=== PATIENT | male | born 1950 | race Caucasian/White ===

== ENCOUNTER → 2018-05-03 | Outpatient (CLI) | payer OTHER ==
[2014-12-18 15:32] VITALS: BP 112/60
[~2018-05-03] MED LIST: ASPI81TA50 PO; ASPI81TA59 PO; ATOR40TA PO; FLUO10CA13 PO; FLUO40CA9 PO; GABA600T2 PO; HYDR-2678 PO; HYDR-2769 PO; HYDR-3135 PO; IBUP-1027 PO; IBUP200C9 PO; METF500T16 PO; Metoprolol Tartrate PO; OLME1TAB25 PO; OLME20TA17 PO; OXYC10TA PO; insulin; vitamin d 3
--- NOTE | 2018-05-03 11:54 | PAIN ---
DATE OF SERVICE: 05/03/2018 PROGRESS NOTE FOR PAIN CLINIC DIAGNOSES: Lumbar radiculopathy with lumbar degenerative disk disease. HISTORY OF PRESENT ILLNESS: The patient is a 67-year-old male who returns for followup, last seen in 2015. The patient did very well after lumbar epidural steroid injection about 75% improvement. He reports for about 3 months after the injection. The patient reports that the pain has returned now and he has been putting off, getting it followed up to some extent over the last 2 years. The patient did see a pain clinic at an outside facility reports that had an injection, but it was not helpful. The patient reports his pain now is a 10 on a scale of 10 at its worst, 10 on average, 6 at its least and is a 6 today. The patient reported aching, shooting, cramping, sharp, radiating, constant in the low back, left lower extremity, mostly in the posterior lateral thigh, lateral anterior thigh, medial thigh, medial lower leg on the left side only and across the low back. The patient did have a new MRI scan dated 11/26/2017 showing osteophyte disk complex at L4-L5 resulting in bilateral neural foraminal encroachment, asymmetric, more severe on the left compared to the right with findings at L4-L5 progressed since previous study in 2016. The patient reports significant pain with walking, standing, changing positions, worse with standing and sitting, changing positions from standing to sitting and vice versa. The patient reports it awakens him from sleep about every 5-6 hours after his last injection, however, here did very well with increased distance walking, doing work activities and household activities. The patient reports he is retired now as his job was too difficult on his pain and medical conditions. Otherwise, the patient has been taking oral narcotics as well as gabapentin without significant long-term improvement. The patient reports no new motor or sensory deficits and no new bowel or bladder incontinence or other complaints. PHYSICAL EXAMINATION: VITAL SIGNS: The patient's blood pressure 135/76, pulse 82, respirations 18 and temperature 98.2 degrees Fahrenheit. Height is 5 feet 9 inches and weight is 275 pounds. GENERAL: The patient is awake, alert, oriented, appropriate and very pleasant demeanor. HEENT: Head shows normocephalic and atraumatic. Extraocular movements are intact and symmetrical. Oral cavity: Mucous membranes are moist and pink. Dentition is intact. NECK: Shows anterior throat supple without palpable lymphadenopathy noted. Swallow reflex is symmetrical. CHEST: Shows normal with inspection. Breath sounds are clear to auscultation bilaterally. HEART: Shows S1 and S2 clear. No murmurs auscultated. ABDOMEN: Soft, nontender and nondistended. No palpable organomegaly is noted. No rebound or guarding demonstrated. BACK: The patient's back shows spine grossly in the midline. Slight exaggeration of the thoracic kyphosis, some minor flattening of the lumbar lordotic curvature. Lumbar paraspinous muscle shows symmetrical on inspection, with palpation shows some moderate tenderness diffusely in the middle and lower distribution of the paraspinous muscles but is symmetrical without evidence of atrophy, hypertrophy without trigger points. No tenderness over the spinous processes, sacrum or sacroiliac regions. The patient shows good rotational motion both laterally greater than 10 degrees right and left as well as extension greater than 10 degrees, forward flexion 45 degrees without significant pain involved. EXTREMITIES: The patient's lower extremities show deep tendon reflexes 1+ in the patellar and tendo-calcaneus tendons. Motor exam is approximately 4 on a scale of 5 with left dorsiflexion, extension, quadriceps and hamstring flexion and 5/5 on the right. Peripheral pulses are 1+ posterior tibia. No peripheral edema is noted. The patient does have a positive straight leg raise on the left at about 30-35 degrees, which is decreased with knee flexion, right side is negative. Gaenslen's and Derek's maneuvers are negative bilaterally as well. The patient's peripheral pulses are 1+ posterior tibial. No peripheral edema is noted bilaterally. Options were discussed with the patient. The patient's old chart was reviewed as well as his current medication regimen updated. Current review of systems updated today as well. We will preauthorize the patient for a lumbar epidural steroid injection, he has done very well with this in the past with radicular pain in the L4-L5 dermatomal distribution on the left returning significantly with MRI scan showing progression of the L4-L5 disk at the left with neural foraminal encroachment. We will maintain doing exercises on his own as he has been trying to walk daily his dog and will maintain that as well and we will follow up in approximately 2 weeks and plan on lumbar epidural steroid injection at that time. CHANDLER BECERRIL MD DR: NIYAH/ann JOB#: [id number] / [id number]
== END | disposition home or self-care (01) ==
LOC: PNCL 10:04
PROVIDERS: ATTEND Anesthesiology
DX: M51.16 Intervertebral disc disorders with radiculopathy, lumbar region (principal)
CPT/HCPCS: G0463

== ENCOUNTER → 2018-05-17 | Outpatient (CLI) | payer OTHER ==
[2014-12-18 15:32] VITALS: BP 112/60
[~2018-05-17] MED LIST changes: +IOHEXOL 180 MG/ML 10 ML VIAL. ONE; +methylPREDNISolone ACETATE 40 MG/ML VIAL. ONE; +methylPREDNISolone ACETATE 80 MG/ML VIAL. ONE
--- NOTE | 2018-05-18 07:05 | PAIN ---
DATE OF SERVICE: 05/17/2018 DIAGNOSES: Lumbar radiculopathy with lumbar degenerative disk disease. HISTORY OF PRESENT ILLNESS: The patient is a 67-year-old male who returns for followup status post initial evaluation and preauthorization for lumbar epidural steroid injection. The patient has obtained that now and would like to proceed. The patient complains still of low back pain, left lower extremity pain greater than right, in the posterior gluteus, posterolateral thigh, lateral anterior thigh, medial thigh, medial lower leg, some tingling in the foot and ankle on the left greater than right and across the low back as well. The patient reports the pain is a 10 on scale of 10 at its worst, 9 on average, 8 at its least and is an 8 today. Sharp, dull, aching, tight, shooting, radiating, becoming more severe and more unbearable. The patient reports it is worse with standing, walking, changing positions, has been awakening him from sleep about every 4-5 hours at night. The patient reports no new motor or sensory deficits, no new bowel or bladder incontinence or other complaints. PHYSICAL EXAMINATION: VITAL SIGNS: The patient's blood pressure 130/95, pulse 94, respirations are 18, temperature 98.5 degrees Fahrenheit, height is 5 feet 9 inches, weighs 270 pounds. GENERAL: The patient is awake, alert, oriented, appropriate, very pleasant demeanor. HEENT: Shows normocephalic, atraumatic. Extraocular movements intact and symmetrical. Oral cavity: Mucous membranes moist and pink. Dentition is intact. NECK: Shows anterior throat supple without palpable lymphadenopathy noted. Swallow reflex is symmetrical. CHEST: Shows normal with inspection. Breath sounds clear to auscultation bilaterally. HEART: Shows S1, S2 clear. No murmurs auscultated. ABDOMEN: Soft, nontender, nondistended. No palpable organomegaly is noted. No rebound or guarding demonstrated. BACK: Shows spine grossly in the midline. Normal appearing thoracic kyphosis and minor flattening of lumbar lordotic curvature. Lumbar paraspinous muscle shows symmetrical on inspection and palpation shows some moderate tenderness, but only diffusely without radiation. The patient has good rotational motion of the lumbar spine both laterally as well as extension and flexion bilaterally without significant pain recorded. EXTREMITIES: The patient's lower extremities show deep tendon reflexes at 1+ in the patellar and tendo calcaneus tendons are equal. Motor exam is approximately 4 on a scale of 5 on the left and 5/5 on the right with dorsiflexion, extension, quadriceps and hamstring flexion. Peripheral pulses are 1+ posterior tibia. No peripheral edema is noted bilaterally. Options were discussed with the patient. The patient's old chart was reviewed. His current medication regimen updated. Current review of systems updated today as well. We will proceed with a lumbar epidural steroid injection first in the series today with fluoroscopic guidance. Risks were again discussed including, but not limited to bleeding, infection, possibility of epidural hematoma, subsequent neurological compromise, dural puncture, headaches, spinal cord and/or nerve damage, side effects of steroid medication and poor results regarding pain control. The patient understands and wished to proceed. The patient will return to clinic in approximately 2 weeks for followup, was counseled on return appointment, activity level and side effects to be aware of. DIAGNOSES: Lumbar radiculopathy with lumbar degenerative disk disease. PROCEDURES: Lumbar epidural steroid injection, translaminar approach at L4-L5 level using C-arm fluoroscopic guidance under sterile prep and drape using local anesthetic. MEDICATION INJECTED: A total of 120 mg Depo-Medrol, plus 10 mL preservative free normal saline and 2 mL of Isovue for contrast. CONDITION AT DISCHARGE: Stable. The patient tolerated procedure well, had no complications. CHANDLER BECERRIL MD DR: NIYAH/ann JOB#: [id number] / [id number]
== END | disposition home or self-care (01) ==
LOC: PNCL 09:10
PROVIDERS: ATTEND Anesthesiology
DX: M51.16 Intervertebral disc disorders with radiculopathy, lumbar region (principal)
CPT/HCPCS: 62323; J1030; J1040; Q9965

== ENCOUNTER → 2018-05-31 | Outpatient (CLI) | payer OTHER ==
[2014-12-18 15:32] VITALS: BP 112/60
[~2018-05-31] MED LIST changes: +CYCL10TA2 PO; -GABA600T2 PO; +GABA600T7 PO; +INSU100I30 SQ; -IOHEXOL 180 MG/ML 10 ML VIAL. ONE; +LOSA1TAB25 PO; +METF10007 PO; +MORP15TA80 PO; +NABU500T PO; +OXYC5CAP PO; +POLY17PO28 PO; -methylPREDNISolone ACETATE 40 MG/ML VIAL. ONE; -methylPREDNISolone ACETATE 80 MG/ML VIAL. ONE
--- NOTE | 2018-05-31 12:17 | PAIN ---
DATE OF SERVICE: 05/31/2018 DIAGNOSES: Lumbar radiculopathy with lumbar degenerative disk disease. HISTORY OF PRESENT ILLNESS: The patient is a 67-year-old male who returns for followup status post lumbar epidural steroid injection x 1. The patient reports about 70% improvement in the low back and left lower extremity. The patient reports he is doing very well, has increased his activity with greater ease and comfort, walking greater distances, doing activities at home as well as traveling with much greater ease and comfort, sleeping well at night. The patient is very pleased with his progress. He reports the pain is beginning to return in the low back and left lower extremity, mostly in the posterior gluteus, posterolateral thigh, lateral anterior thigh, anterior medial thigh, medial lower leg. It is aching, cramping, radiating, becoming more noticeable, but again significantly improved about 70% and has been over 2 weeks now since this injection, still doing very well. The patient reports it is a 6 on a scale 10 at its worst, 3-4 on average 2-3 at its least and is a 3 today. The patient reports no new motor or sensory deficits, no new bowel or bladder incontinence or other complaints. PHYSICAL EXAMINATION: VITAL SIGNS: The patient's blood pressure 154/82, pulse 70, respirations 18, temperature is 97.9 degrees Fahrenheit, height is 5 feet 9 inches, weight is 267 pounds. GENERAL: The patient is awake, alert, oriented, appropriate, very pleasant demeanor. HEENT: Head shows normocephalic, atraumatic. Extraocular movements are intact and symmetrical. Oral cavity, mucous membranes are moist and pink. Dentition is intact. NECK: Shows anterior throat supple without palpable lymphadenopathy noted. Swallow reflex symmetrical. CHEST: Shows normal with inspection. Breath sounds are clear bilaterally. HEART: Shows S1, S2 clear. No murmurs auscultated. ABDOMEN: Obese, soft, nontender, nondistended. No palpable organomegaly is noted. No rebound or guarding. BACK: The patient's back shows spine grossly in the midline, slight exaggerated thoracic kyphosis, some minor flattening of lumbar lordotic curvature. Lumbar paraspinous muscle shows symmetrical on inspection, with palpation shows some moderate tenderness diffusely, but only in the low lumbar distribution only, very mildly without radiation, without trigger points. No atrophy or hypertrophy. The patient shows no tenderness over the sacrum or sacroiliac regions. The patient has good rotational motion of lumbar spine, both laterally greater than 10 degrees right and left as well as extension greater than 10 degrees, forward flexion 45 degrees without difficulty or pain reported. EXTREMITIES: Lower extremities show deep tendon reflexes 1+ in the patellar and tendo calcaneus tendons. Motor exam is approximately 4 on a scale of 5 on the left with dorsiflexion and extension, 5/5 on the right. Peripheral pulses are 1+ posterior tibia. No peripheral edema is noted bilaterally. Options were discussed with the patient. The patient's old chart was reviewed, his current medication regimen updated. Current review of systems updated today as well. We will preauthorize the patient for a second lumbar epidural steroid injection. He has done very well, but returning L4-L5 radiculopathy on the left, and we will preauthorize for an L4-L5 level epidural steroid injection. He did quite well with about 70% improvement for the first 2+ weeks after the injection. The patient will continue doing strengthening and stretching exercises as described and walking daily as tolerated. The patient will return to clinic in approximately 2 weeks. We will plan on second lumbar epidural steroid injection at that time. CHANDLER BECERRIL MD DR: NIYAH/ann JOB#: [id number] / [id number]
== END | disposition home or self-care (01) ==
LOC: PNCL 10:30
PROVIDERS: ATTEND Anesthesiology
DX: M51.16 Intervertebral disc disorders with radiculopathy, lumbar region (principal)
CPT/HCPCS: G0463

== ENCOUNTER → 2018-07-08 | Outpatient (CLI) | payer OTHER ==
[2018-06-10 15:00] VITALS: BP 136/70
--- NOTE | 2018-07-08 20:56 | PAIN ---
DATE OF SERVICE: 07/08/2018 PROGRESS NOTE FOR PAIN CLINIC DIAGNOSES: Lumbar radiculopathy with lumbar degenerative disk disease. HISTORY OF PRESENT ILLNESS: The patient is a 67-year-old male who returns for followup status post lumbar epidural steroid injection x 2, first injection with approximately 75% improvement that was on the 05/17/2018. The patient had a second one as an inpatient, which was not as effective but still with about 60% improvement overall. The patient reports still pain in the low back, left lower extremity as it was previously. I reviewed his MRI scan from November of last year showing some significant stenosis on the left side L4-L5 with osteophyte disk complex and a tear in the left foraminal to lateral position resulting in bilateral neural foraminal encroachment, asymmetric, more severe on the left compared to the right, progressed since previous study of 2017. Again, the patient is doing better with the pain but it is returning in the low back and into the left lower extremity, again last injection on June 10 and was good for about 3 weeks following the injection but the pain still about 60% improvement, was much better prior to that. The patient reports the pain is returning posterior gluteus, posterolateral thigh, lateral anterior thigh, medial thigh, medial lower leg and posterior calf with some spasming in the left foot as well with prolonged sitting. The patient reports it is aching, sharp, stabbing, severe, becoming more unbearable, worse with walking, standing and weightbearing of any kind, better if he sits still, does not move but when he moves or he has to get up from sitting position, the pain returns. The patient reports it is a 10 on a scale of 10 at its worst, 10 on average, 6-7 at its least and is a 7 today. The patient reports no new motor or sensory deficits and no new bowel or bladder incontinence. Initially, he is doing much better distance walking, sitting for greater periods, able to do work activities and household activities. He returned to work last weekend and reports it was difficult, but he did get through it despite the pain. PHYSICAL EXAMINATION: VITAL SIGNS: Today, the patient's blood pressure is 145/94, pulse 90, respirations are 18 and temperature 98.6 degrees Fahrenheit. Height is 5 feet 9 inches and weight is 258 pounds. GENERAL: The patient is awake, alert, oriented, appropriate and very pleasant demeanor. HEENT: Head shows normocephalic and atraumatic. Extraocular movements are intact and symmetrical. Oral cavity: Mucous membranes are moist and pink. Dentition is intact. NECK: Shows anterior throat supple without palpable lymphadenopathy noted. Swallow reflex is symmetrical. CHEST: Shows normal with inspection. Breath sounds are clear to auscultation bilaterally. HEART: Shows S1 and S2 clear. No murmurs auscultated. ABDOMEN: Soft, nontender and nondistended. No palpable organomegaly is noted. No rebound or guarding demonstrated. BACK: Shows spine grossly in the midline, slight exaggerated thoracic kyphosis and some minor flattening of lumbar lordotic curvature. Lumbar paraspinous musculature shows symmetrical on inspection. On palpation shows some moderate tenderness diffusely but only with low lumbar distribution of the paraspinous musculature palpation. The patient has no radiation of pain from the low back. Good rotational motion both laterally as well as extension and flexion. No tenderness over the sacrum or sacroiliac regions or the spinous processes bilaterally. EXTREMITIES: The patient's lower extremities show deep tendon reflexes at 1+ in the patellar and tendo-calcaneus tendons. Motor exam is approximately 4 on a scale 5 in the left with dorsiflexion and extension, 5/5 on the right. The patient's peripheral pulses are 1+ posterior tibial. No peripheral edema is noted bilaterally. Options were discussed with the patient. The patient's old chart was reviewed as well as his current medication regimen updated. Current review of systems updated today as well and we will proceed with a preauthorization for a third in the series of lumbar epidural steroid injection. He has done quite well with the first two with 75% and 60% improvement, respectively for the past 3 weeks with pain returning in a radicular fashion at L4-L5 dermatomal distribution on the left side to return for a left L4-L5 translaminar injection. The patient will continue doing stretching and strengthening exercises on his own, heat application of the lumbar spine as well. We also try Medrol Dosepak today. The patient did well with these in the past. The patient was given instruction as well as side effects to be aware of with the medication. We will follow up in approximately 1 week plan on lumbar epidural steroid injection #3 at that time. CHANDLER BECERRIL MD DR: Joya JOB#: [id number] / [id number]
== END | disposition home or self-care (01) ==
LOC: PNCL 13:52
PROVIDERS: ATTEND Anesthesiology
DX: M51.16 Intervertebral disc disorders with radiculopathy, lumbar region (principal)
CPT/HCPCS: G0463

== ENCOUNTER → 2018-07-22 | Outpatient (CLI) | payer OTHER ==
[2018-06-10 15:00] VITALS: BP 136/70
[~2018-07-22] MED LIST changes: +IOHEXOL 180 MG/ML 10 ML VIAL. ONE; +methylPREDNISolone ACETATE 40 MG/ML VIAL. ONE; +methylPREDNISolone ACETATE 80 MG/ML VIAL. ONE
--- NOTE | 2018-07-23 03:02 | PAIN ---
DATE OF SERVICE: 07/22/2018 PROGRESS NOTE FOR PAIN CLINIC: DIAGNOSES: Lumbar radiculopathy with lumbar degenerative disk disease. HISTORY OF PRESENT ILLNESS: The patient is a 67-year-old male who returns for followup status post lumbar epidural steroid injection x 2 and was waiting for preauthorization. He has obtained that now and would like to proceed with his third injection today. He states still has pain in low back, left lower extremity, mostly in the posterior gluteus, posterior thigh, lateral thigh, anterior thigh, medial thigh, medial lower leg to the foot. The patient reports it is sharp, shooting with spasms in the back, stabbing into the leg and becoming more constant. The patient reports it is a 9-10 on a scale of 10 at its worst and average, is 6-7 at its least and is a 9 today. The patient reports it awakens him from sleep about every 3-1/2 hours. Originally, he was increasing his activity, walking, doing work activities as well as household activity. The patient reports he has had to quit his job as he was unable to perform duties that were required of him secondary to the pain. The patient is somewhat depressed about this, but reports he would like to find another job once he is feeling better. The patient reports no new motor or sensory deficits, no new bowel or bladder incontinence or other complaints. PHYSICAL EXAMINATION: VITAL SIGNS: The patient's blood pressure is 136/82, pulse is 71, respirations 18, temperature 98.2 degrees Fahrenheit. Height is 5 feet 9 inches, weight is 257 pounds. GENERAL: The patient is awake, alert, oriented, appropriate, very pleasant demeanor. HEENT: Shows normocephalic, atraumatic. Extraocular movements are intact and symmetrical. Oral cavity: Mucous membranes moist and pink. Dentition is intact. NECK: Shows anterior throat supple without palpable lymphadenopathy noted. Swallow reflex is symmetrical. CHEST: Shows normal on inspection. Breath sounds clear to auscultation bilaterally. HEART: Shows S1, S2 clear. No murmurs auscultated. ABDOMEN: Soft, nontender, nondistended. No palpable organomegaly is noted. No rebound or guarding demonstrated. BACK: Shows spine grossly in the midline. Normal appearing thoracic kyphosis and minor flattening of lumbar lordotic curvature. Lumbar paraspinous muscle shows symmetrical on inspection, on palpation shows some moderate tenderness only diffusely in the low lumbar distribution, but the patient has good rotational motion of lumbar spine, both laterally as well as extension and flexion without significant pain reported. EXTREMITIES: The patient's lower extremities show deep tendon reflexes 1+ in the patellar and tendo calcaneus tendons are equal. Motor exam is approximately 4 on a scale of 5 on the left with dorsiflexion, extension 5/5 on the right. Peripheral pulses are 1+ posterior tibia. No peripheral edema is noted bilaterally. Options were discussed with the patient. The patient's old chart was reviewed as his current medication regimen updated. Current review of systems updated today as well. We will proceed with a third in the series of lumbar epidural steroid injection today with fluoroscopic guidance. Risks were again discussed including, but not limited to bleeding, infection, possibility of epidural hematoma and subsequent neurological compromise, dural puncture, headaches, spinal cord and/or nerve damage, side effects of steroid medication and poor results regarding pain control. The patient understands and wished to proceed. The patient will return to clinic in approximately 2 weeks for followup, was counseled on return appointment, activity level and side effects to be aware of. DIAGNOSES: Lumbar radiculopathy with lumbar degenerative disk disease. PROCEDURE: Lumbar epidural steroid injection, translaminar approach at L4-L5 level using C-arm fluoroscopic guidance under sterile prep and drape using local anesthetic. MEDICATION INJECTED: A total of 120 mg Depo Medrol, plus 10 mL of preservative-free normal saline and 2 mL of Isovue for contrast. CONDITION AT DISCHARGE: Stable. The patient tolerated procedure well, had no complications. CHANDELR BECERRIL MD DR: NIYAH/ann JOB#: [id number] / [id number]
== END | disposition home or self-care (01) ==
LOC: PNCL 12:30
PROVIDERS: ATTEND Anesthesiology
DX: M51.16 Intervertebral disc disorders with radiculopathy, lumbar region (principal)
CPT/HCPCS: 62323; J1030; J1040; Q9965

== ENCOUNTER → 2020-04-18 | Outpatient (CLI) | payer MEDICARE ==
[2018-06-10 15:00] VITALS: BP 136/70
[~2020-04-18] MED LIST changes: -IOHEXOL 180 MG/ML 10 ML VIAL. ONE; -NABU500T PO; +NABU500T7 PO; -methylPREDNISolone ACETATE 40 MG/ML VIAL. ONE; -methylPREDNISolone ACETATE 80 MG/ML VIAL. ONE
--- NOTE | 2020-04-18 09:43 | PDOC ---
Progress Note - Pain Clinic Date of Service: DOS: DATE: 04/18/20 TIME: 09:38 Diagnosis: Dx: Lumbar radiculopathy with lumbar degenerative disc disease Peripheral neuropathy Bilateral shoulder joint pain History or Present Illness: HPI: 69-year-old male returns for follow-up last seen July 2018 patient had lumbar epidural steroid injections x3. Patient reports about 85% improvement for several months following the injections but the pain is returned now slowly over the past year or so with the pain in the low back and left lower extremity posterior gluteus posterior lateral thigh lateral anterior thigh anterior medial thigh medial lower leg into the foot also with some peripheral neuropathic pain described in both feet worse at night. Patient reports also has significant pain in the bilateral shoulders since he is been using his walker more frequently. Patient reports it wakes him from sleep at night about every 3-4 hours with the pain the low back and leg shoulders are worse with walking and standing changing positions and using a walker. Patient rates his pain as an 8 on scale 10 is worse over the past week 8 on average 6 at its least is 8 today. Patient scribes pain in the back and the leg is aching cramping stabbing shooting and radiating on the shoulders is aching and cramping with use. Patient reports no loss of motor function no bowel or bladder incontinence Physical Exam: VS: Blood pressure is 172/88 pulse 74 respirations 18 temperature 98.4 F height is 5 feet 9 inches weight is 267 pounds PE: PHYSICAL EXAMINATION: GENERAL: The patient is awake, alert, oriented, appropriate, very pleasant demeanor HEENT: Shows normocephalic, atraumatic. Extraocular movements are intact and symmetrical. Oral cavity: Mucous membranes moist and pink. Dentition is intact. NECK: Shows anterior throat supple without palpable lymphadenopathy noted. Swa llow reflex symmetrical. CHEST: Shows normal on inspection. Breath sounds are clear bilaterally, no rales rhonchi or wheezes auscultated. HEART: Shows S1, S2 clear. No murmurs auscultated. ABDOMEN: Soft, nontender, nondistended, obese. No palpable organomegaly is noted. No rebound or guarding demonstrated. BACK: Shows spine grossly in the midline. Normal-appearing cervical lordotic curvature. There is slightly increased thoracic kyphosis, some minor flattening of the lumbar lordotic curvature. Lumbar paraspinous muscles show symmetrical on inspection, on palpation shows some moderate tenderness diffusely throughout the upper, middle and lower distribution of the paraspinous muscles bilaterally and also into the lower thoracic paraspinous musculature, firm and tender, but without specific trigger points, without radiation of pain. The patient has good rotational motion of the lumbar spine, both laterally as well as extension and flexion without significant difficulty. No tenderness over the spinous pr ocesses, sacrum or sacroiliac regions. EXTREMITIES: Lower extremities show deep tendon reflexes 1+ in the patellar and tendo calcaneus tendons. Motor exam is 5 on a scale of 5 with right dorsiflexion, extension, quadriceps and hamstring flexion and 4/5 on the left. Peripheral pulses are 1+ posterior tibial. No peripheral edema is noted bilaterally. Lower extremities are warm and dry to touch, equal in color and appearance. Straight leg raise noted to be positive on the left at about 45 degrees decreased with knee flexion right side is negative. Gaenslen's and Derek's maneuvers are negative bilaterally as well. Patient upper extremities show good rotational motion of the shoulders both laterally as well as abduction and adduction, with significant pain with resistance on abduction only. The patient is able to stand, needs assistance from his walker to get to a standing position and walks with a significant shuffling gait again with significant use of the walker to ambulate. SKIN: Shows warm and dry, good turgor. No edema. No sores, rashes or bruising throughout. Procedure: Procedure: Options were discussed with the patient. Patient chart was reviewed his current medication regimen updated current review of systems updated today as well. We will preauthorize patient for lumbar epidural steroid injections did very well with these in the past. Patient continuing with physical therapy exercises on his own stretching and strengthening as well as [id number] analgesics Tylenol most commonly. We will try Medrol Dosepak in the meantime patient can instructions well side effects beware of especially elevated blood glucose to monitor. Patient also be given a trial of gabapentin 200 mg to take at night in hopes of decreasing some of the neuropathic pain he is experiencing. Patient was given instructions well side effects with each of the medications and will follow up once preauthorization is obtained for translaminar L4-5 lumbar epidural steroid injection. Medication Injected: Med Injected: None Condition at Discharge: Condition at Discharge: Condition at discharge is stable. CHANDLER BECERRIL MD Apr 18, 2020 09:43
== END | disposition home or self-care (01) ==
LOC: PNCL 08:58
PROVIDERS: ATTEND Anesthesiology
DX: M51.16 Intervertebral disc disorders with radiculopathy, lumbar region (principal); G62.9 Polyneuropathy, unspecified; M25.512 Pain in left shoulder; M25.511 Pain in right shoulder; I25.10 Atherosclerotic heart disease of native coronary artery without angina pectoris; I10 Essential (primary) hypertension; E78.00 Pure hypercholesterolemia, unspecified; E11.42 Type 2 diabetes mellitus with diabetic polyneuropathy; F41.9 Anxiety disorder, unspecified; F32.9 Major depressive disorder, single episode, unspecified; M19.90 Unspecified osteoarthritis, unspecified site; Z79.899 Other long term (current) drug therapy; Z79.4 Long term (current) use of insulin; Z98.890 Other specified postprocedural states; Z87.891 Personal history of nicotine dependence
CPT/HCPCS: 99212; G0463

== ENCOUNTER → 2020-05-03 | Outpatient (CLI) | payer MEDICARE ==
[2018-06-10 15:00] VITALS: BP 136/70
[~2020-05-03] MED LIST changes: +IOHEXOL 180 MG/ML 10 ML VIAL. ONE; +methylPREDNISolone ACETATE 40 MG/ML VIAL. ONE; +methylPREDNISolone ACETATE 80 MG/ML VIAL. ONE
--- NOTE | 2020-05-03 13:19 | PDOC ---
Progress Note - Pain Clinic Date of Service: DOS: DATE: 05/03/20 TIME: 13:16 Diagnosis: Dx: Lumbar radiculopathy with lumbar degenerative disc disease History or Present Illness: HPI: 69-year-old male returns follow-up status post evaluation and preauthorization for lumbar epidural steroid injection. Patient is obtained that now like to proceed. Patient reports significant pain low back left lower extremity posterior gluteus posterior lateral thigh lateral anterior thigh anteromedial thigh and medial lower leg as well as in the calf on the left worse with walking standing changing positions better with sitting or laying down patient reports still wakes him sleep about once every 6 hours patient reports his pain is a 9 on scale 10 is worse over the past week 9 on average 6 at its least is a 9 today. Patient scribes pain is aching and sharp stabbing radiating the left lower extremity. Patient ports no motor loss but significant fatigability of the left leg with walking and standing. Patient reports no new motor or sensory deficits or other complaints. Physical Exam: VS: Blood pressure 143/84 pulse 99 respirations 18 temperature 98.1 F height 5 feet 9 inches weight is 264 pounds PE: PHYSICAL EXAMINATION: GENERAL: The patient is awake, alert, oriented, appropriate, very pleasant demeanor HEENT: Shows normocephalic, atraumatic. Extraocular movements are intact and symmetrical. NECK: Shows anterior throat supple without palpable lymphadenopathy noted. Swallow reflex symmetrical. CHEST: Shows normal on inspection. Breath sounds are clear bilaterally. HEART: Shows S1, S2 clear. No murmurs auscultated. ABDOMEN: Soft, nontender, nondistended, obese. No palpable organomegaly is noted. No rebound or guarding demonstrated. BACK: Shows spine grossly in the midline. Normal-appearing cervical lordotic curvature. There is slightly increased thoracic kyphosis, some minor flattening of the lumbar lordotic curvature. Lumbar paraspinous muscles show symmetrical on inspection, on palpation shows some moderate tenderness diffusely throughout the upper, middle and lower distribution of the paraspinous muscles without specific trigger points, without radiation of pain. The patient has good rotational motion of the lumbar spine, both laterally as well as extension and flexion without significant difficulty. No tenderness over the spinous processes, sacrum or sacroiliac regions. EXTREMITIES: Lower extremities show deep tendon reflexes 1+ in the patellar and tendo calcaneus tendons. Motor exam is 5 on a scale of 5 with right dorsiflexion, extension, quadriceps and hamstring flexion and 4/5 on the left. Peripheral pulses are 1+ posterior tibial. No peripheral edema is noted bilaterally. Lower extremities are warm and dry to touch, equal in color and appearance. SKIN: Shows warm and dry, good turgor. No edema. No sores, rashes or bruising throughout. Procedure: Procedure: Options were discussed with the patient. Patient chart was reviewed his case regimen updated current review of systems updated today as well. We will proceed with a lumbar epidural steroid injection today with fluoroscopic guidance. Risks were discussed including but not limited to: Bleeding, infection, possibility of epidural hematoma and subsequent neurological compromise, dural puncture, headaches, spinal cord and/or nerve damage, side effects of steroid medication, and poor results regarding pain control. Patient understands wished to proceed. Patient will return to clinic in approximate 2 weeks for follow-up was counseled as to return appointment activity level and side effects to be aware of. Medication Injected: Med Injected: Procedure is lumbar epidural steroid injection under local anesthetic using sterile prep and drape at the L4-5 level using C-arm fluoroscopic guidance in both AP and lateral views medications injected is 120 mg Depo-Medrol + 10 mL preservative-free normal saline and 2 mL contrast- condition at discharge is stable patient tolerated procedure well had no complications. Condition at Discharge: Condition at Discharge: Discharge stable, patient noted procedure well and had no complications. CHANDLER BECERRIL MD May 03, 2020 13:19
== END | disposition home or self-care (01) ==
LOC: PNCL 12:45
PROVIDERS: ATTEND Anesthesiology
DX: M51.16 Intervertebral disc disorders with radiculopathy, lumbar region (principal); I25.10 Atherosclerotic heart disease of native coronary artery without angina pectoris; E78.00 Pure hypercholesterolemia, unspecified; I10 Essential (primary) hypertension; E11.9 Type 2 diabetes mellitus without complications; M19.90 Unspecified osteoarthritis, unspecified site; F41.9 Anxiety disorder, unspecified; F32.9 Major depressive disorder, single episode, unspecified; Z79.82 Long term (current) use of aspirin; Z79.4 Long term (current) use of insulin; Z79.899 Other long term (current) drug therapy; Z98.890 Other specified postprocedural states; Z87.891 Personal history of nicotine dependence
CPT/HCPCS: 62323; J1030; J1040; Q9965